=== PATIENT | male | born 1980 | race African-American/Black ===

== ENCOUNTER 2018-03-08 20:47 | Emergency (ER) | payer OTHER ==
[~2018-03-08] VITALS: Ht 182.9 cm; Wt 103.4 kg
[2018-03-08 21:22] LABS: ABSOLUTE EOSINOPHILS 0.2 thou/uL (0.0-0.7); ABSOLUTE LYMPHOCYTES 1.2 thou/uL (0.8-5.3); ABSOLUTE MONOCYTES 0.5 thou/uL (0.0-1.2); ABSOLUTE NEUTROPHILS 4.6 thou/uL (1.6-8.1); BASOPHILS 0.6 %; EOSINOPHILS 2.4 %; HEMOGLOBIN 15.2 gm/dL (14.0-18.0); LYMPHOCYTES 18.8 %; MCH 28.5 pg (26.0-34.0); MCHC 32.3 g/dL (28.0-37.0); MONOCYTES 7.4 %; MPV 9.2 fl. (7.2-11.1); NUCLEATED RBCS 0 /100WBC; PLATELET COUNT* 210 thou/uL (150-400); POLYS 70.8 %; RBC 5.34 mil/uL (4.50-6.00); RDW-CV 14.8 % (10.5-14.5); WBC 6.5 thou/uL (4.0-11.0)
[2018-03-08 21:30] LABS: ANION GAP 4 mmol/L (7-16); BUN 9 mg/dL (7-18); CALCIUM 8.8 mg/dL (8.5-10.1); CHLORIDE 106 mmol/L (98-107); CO2 31 mmol/L (21-32); CREATININE 1.2 mg/dL (0.6-1.3); GLUCOSE 145 mg/dL (70-99); POTASSIUM 4.1 mmol/L (3.5-5.1); SODIUM 141 mmol/L (136-145)
[2018-03-08 21:39] LABS: ALBUMIN 3.5 g/dL (3.4-5.0); ALKALINE PHOSPHATASE 97 U/L (46-116); LIPASE 129 U/L (73-393); SGOT 15 U/L (15-37); SGPT 16 U/L (30-65); TOTAL BILIRUBIN 0.2 mg/dL (<0.1-1.0); TOTAL PROTEIN 7.1 g/dL (6.4-8.2); TROPONIN-I LEVEL <0.06 ng/mL (<0.06)
[2018-03-08] MEDS ORDERED: CARAFATE 1 GM TA1 GM PO (22:00)
[2018-03-08 22:05] VITALS: BP 121/79
--- NOTE | 2018-03-09 14:31 | EKG ---
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 : 1980 Requested By: Alexa Edwards Order Number: [id number] MD: Roger South Measurements Intervals [place] Rate: 90 P: 66 [place]: 136 QRS: 2 QRSD: 78 T: 28 QT: 351 QTc: 430 Interpretive Statements Sinus rhythm Left ventricular hypertrophy, bivoltage ST elev, probable normal early repol pattern No previous ECG available for comparison Electronically Signed On 03-09-2018 14:31:44 SENIOR DRAFTER by Roger South [email or web address] <ELECTRONICALLY SIGNED> By: Roger South MD, [facility] 03/09/18 1431 49 49 Roger South MD, FACC /EPI
== END 2018-03-08 22:05 | disposition home or self-care (01) ==
LOC: M.ERS 20:47
PROVIDERS: Personal Emergency Response Attendant
DX: K21.9 Gastro-esophageal reflux disease without esophagitis (principal); I10 Essential (primary) hypertension; F17.210 Nicotine dependence, cigarettes, uncomplicated; Z88.8 Allergy status to other drugs, medicaments and biological substances

== ENCOUNTER 2018-09-24 02:03 | Emergency (ER) | payer OTHER ==
[~2018-09-24] VITALS: Ht 182.9 cm; Wt 103.4 kg
[~2018-09-24 02:03] MED LIST: CARAFATE 1 GM TA1 GM PO
[2018-09-24] MEDS ORDERED: LISINOPRIL10 MG PO (02:18)
[2018-09-24] MEDS ORDERED: MICROZIDE12.5 MG PO (02:18)
[2018-09-24] MEDS ORDERED: LISINOPRIL-HCT1 EAC2 PO (02:25)
[2018-09-24 02:55] LABS: ABSOLUTE EOSINOPHILS 0.1 thou/uL (0.0-0.7); ABSOLUTE LYMPHOCYTES 0.5 thou/uL (0.8-5.3); ABSOLUTE NEUTROPHILS 4.8 thou/uL (1.6-8.1); BASOPHILS 0.5 %; EOSINOPHILS 1.3 %; HEMATOCRIT 40.6 % (42.0-52.0); HEMOGLOBIN 13.6 gm/dL (14.0-18.0); LYMPHOCYTES 7.6 %; MCH 29.5 pg (26.0-34.0); MCHC 33.5 g/dL (28.0-37.0); MCV 88.1 fL (80.0-100.0); MPV 9.5 fl. (7.2-11.1); NUCLEATED RBCS 0 /100WBC; PLATELET COUNT* 197 thou/uL (150-400); POLYS 74.6 %; RBC 4.61 mil/uL (4.50-6.00); RDW-CV 14.9 % (10.5-14.5); WBC 6.5 thou/uL (4.0-11.0)
[2018-09-24 03:16] LABS: ANION GAP 7 mmol/L (7-16); BUN 11 mg/dL (7-18); CHLORIDE 105 mmol/L (98-107); CO2 30 mmol/L (21-32); GLUCOSE 95 mg/dL (70-99); POTASSIUM 3.7 mmol/L (3.5-5.1); SODIUM 142 mmol/L (136-145)
[2018-09-24 03:26] LABS: ALKALINE PHOSPHATASE 70 U/L (46-116); LIPASE 105 U/L (73-393); MAGNESIUM 1.7 mg/dL (1.8-2.4); SGOT 15 U/L (15-37); SGPT 19 U/L (30-65); TOTAL BILIRUBIN 0.4 mg/dL (<0.1-1.0); TOTAL PROTEIN 7.4 g/dL (6.4-8.2); TROPONIN-I LEVEL <0.06 ng/mL (<0.06)
[2018-09-24] MEDS ORDERED: DOXYCYCLINE 10100 MG PO (03:29)
[2018-09-24 03:46] LABS: URINE BILIRUBIN NEGATIVE (Negative); URINE BLOOD 3+ (Negative); URINE CLARITY CLEAR; URINE COLOR YELLOW; URINE GLUCOSE-RANDOM NEGATIVE (Negative); URINE KETONES NEGATIVE (Negative); URINE LEUKOCYTES-REFLEX NEGATIVE (Negative); URINE NITRITE-REFLEX NEGATIVE (Negative); URINE PROTEIN TRACE (Negative); URINE SPECIFIC GRAVITY 1.025 (1.005-1.030); URINE UROBILINOGEN 0.2 E.U./dl (0.2-1.0)
[2018-09-24 03:47] LABS: BACTERIA-REFLEX None Seen /HPF (None Seen); CASTS None Seen /LPF (None Seen); CRYSTALS None Seen /LPF (None Seen); MUCUS >6 Heavy strn/LPF (None Seen); SQUAMOUS NONE SEEN /LPF (0-3); URINE RBC >20 Many /HPF (0-2); URINE WBC-REFLEX 0-5 Rare /HPF (0-5)
[2018-09-24 05:38] VITALS: BP 136/88
--- NOTE | 2018-09-24 11:17 | EKG ---
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: FERNANDO : 1980 Requested By: Juan Daniel Hooper Order Number: [id number] MD: Black Gonzalez Measurements Intervals [place] Rate: 81 P: 41 [place]: 157 QRS: 13 QRSD: 95 T: 117 QT: 347 QTc: 403 Interpretive Statements Sinus rhythm Probable LVH with secondary repol abnrm Anterior ST elevation, probably due to LVH Baseline wander in lead(s) I,II,aVR,aVL,aVF,V1,V2,V3,V4,V5,V6 Compared to ECG 03/08/2018 20:50:48 No significant changes Electronically Signed On 09-24-2018 11:17:07 CDT by Black Gonzalez [email or web address] <ELECTRONICALLY SIGNED> By: Black Gonzalez MD, FAC 09/24/18 1117 1 1 Black Gonzalez MD, FAC /EPI
== END 2018-09-24 05:38 | disposition home or self-care (01) ==
LOC: M.ERS 02:03
PROVIDERS: Emergency Medicine Emergency Medical Services
DX: M94.0 Chondrocostal junction syndrome [Tietze] (principal); N34.2 Other urethritis; R51 Headache; F17.210 Nicotine dependence, cigarettes, uncomplicated; I10 Essential (primary) hypertension; Z88.4 Allergy status to anesthetic agent

== ENCOUNTER 2020-12-10 04:03 | Emergency (ER) | payer OTHER ==
[~2020-12-10] VITALS: Ht 182.9 cm; Wt 116.1 kg
[~2020-12-10 04:03] MED LIST changes: +DOXYCYCLINE 10100 MG PO; +LISINOPRIL-HCT1 EAC2 PO; +LISINOPRIL10 MG PO; +MICROZIDE12.5 MG PO
[2020-12-10] MEDS ORDERED: METFORMIN HCL500 M3 PO (04:13)
[2020-12-10 04:40] LABS: ABSOLUTE LYMPHOCYTES 1.8 thou/uL (0.8-5.3); ABSOLUTE MONOCYTES 1.1 thou/uL (0.0-1.2); ABSOLUTE NEUTROPHILS 8.7 thou/uL (1.6-8.1); BASOPHILS 0.3 %; HEMATOCRIT 43.9 % (42.0-52.0); HEMOGLOBIN 14.4 gm/dL (14.0-18.0); MCH 28.4 pg (26.0-34.0); MCHC 32.9 g/dL (28.0-37.0); MCV 86.4 fL (80.0-100.0); MONOCYTES 9.8 %; MPV 9.4 fl. (7.2-11.1); NUCLEATED RBCS 0 /100WBC; PLATELET COUNT* 267 thou/uL (150-400); POLYS 74.9 %; RBC 5.08 mil/uL (4.50-6.00); RDW-CV 14.9 % (10.5-14.5); WBC 11.6 thou/uL (4.0-11.0)
[2020-12-10 04:50] LABS: CALCIUM 9.8 mg/dL (8.5-10.1); CREATININE 1.7 mg/dL (0.6-1.3); POTASSIUM 3.8 mmol/L (3.5-5.1)
[2020-12-10 04:59] LABS: ALBUMIN 4.6 g/dL (3.4-5.0); TOTAL BILIRUBIN 0.6 mg/dL (<0.1-1.0); TOTAL PROTEIN 8.8 g/dL (6.4-8.2)
[2020-12-10] MEDS ORDERED: OTHER MISCELL (06:36)
[2020-12-10] MEDS ORDERED: CEPHALEXIN500 MG PO (07:01)
[2020-12-10 07:03] VITALS: BP 135/96
--- NOTE | 2020-12-10 10:11 | EKG ---
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1980 Requested By: Alexa Edwards Order Number: [id number] MD: Black Gonzalez Measurements Intervals [place] Rate: 131 P: 69 [place]: 146 QRS: 32 QRSD: 77 T: 27 QT: 303 QTc: 448 Interpretive Statements Sinus tachycardia Probable left atrial enlargement Probable left ventricular hypertrophy Baseline wander in lead(s) V3 Compared to ECG 09/24/2018 02:12:09 Sinus rhythm no longer present ST (T wave) deviation no longer present Electronically Signed On 12-10-2020 10:11:40 CDT by Black Gonzalez [email or web address] <ELECTRONICALLY SIGNED> By: Black Gonzalez MD, [facility] 12/10/20 1011 0417 0417 Black Gonzalez MD, [facility] /EPI
== END 2020-12-10 07:04 | disposition home or self-care (01) ==
LOC: M.ERS 04:03
PROVIDERS: Personal Emergency Response Attendant
DX: R60.0 Localized edema (principal); L03.032 Cellulitis of left toe; L03.031 Cellulitis of right toe; E11.9 Type 2 diabetes mellitus without complications; I10 Essential (primary) hypertension; F17.210 Nicotine dependence, cigarettes, uncomplicated; Z98.890 Other specified postprocedural states; Z88.4 Allergy status to anesthetic agent